=== PATIENT | female | born 2000 | race Hispanic/Latino ===

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

== ENCOUNTER 2020-02-06 11:38 | Emergency (ER) | payer OTHER ==
[~2020-02-06] VITALS: Ht 149.9 cm; Wt 54.0 kg
[2020-02-06] MEDS ORDERED: IBUPROFEN600 MG PO (13:37)
[2020-02-06] MEDS ORDERED: FLEXERIL5 M1 PO (13:37)
[2020-02-06 13:45] VITALS: BP 97/59
== END 2020-02-06 13:55 | disposition home or self-care (01) | DRG 552 ==
LOC: ED 11:38
DX: S16.1XXA Strain of muscle, fascia and tendon at neck level, initial encounter (principal); S29.012A Strain of muscle and tendon of back wall of thorax, initial encounter; F17.200 Nicotine dependence, unspecified, uncomplicated; V40.5XXA Car driver injured in collision with pedestrian or animal in traffic accident, initial encounter

== ENCOUNTER 2020-02-27 14:40 | Emergency (ER) | payer OTHER ==
[~2020-02-27] VITALS: Ht 149.9 cm; Wt 50.0 kg
[~2020-02-27 14:40] MED LIST changes: +FLEXERIL5 M1 PO; +IBUPROFEN600 MG PO
[2020-02-27 15:14] LABS: URINE BLOOD DIPSTICK NEGATIVE (NEGATIVE); URINE CLARITY CLEAR; URINE COLOR YELLOW; URINE GLUCOSE - DIPSTICK NEGATIVE (NEGATIVE); URINE KETONE 15 mg/dL (NEGATIVE); URINE LEUK ESTERASE NEGATIVE (Negative); URINE NITRITE - DIPSTICK NEGATIVE (Negative); URINE PROTEIN - DIPSTICK 100 mg/dL (NEG-TRACE); URINE SPECIFIC GRAVITY >=1.030; URINE UROBILINOGEN - DIPSTICK 0.2 E.U./dL (0.2)
[2020-02-27 15:19] LABS: URINE BILIRUBIN - DIPSTICK NEGATIVE (NEGATIVE)
[2020-02-27 15:22] LABS: URINE MUCUS FEW hpf (NONE-FEW); URINE SQUAMOUS EPITHELIAL CELL FEW EPI/hpf (0-FEW)
[2020-02-27 16:02] VITALS: BP 105/67
--- NOTE | 2020-03-01 09:47 | NUR ---
Notified patient of positive Covid results. Patient states she is "feeling fine" Advised patient to quarantine until contacted by the [facility]. Advised patient to return to the [facility] with any difficulty breathing. Patient verbalized underestanding.
== END 2020-02-27 16:10 | disposition home or self-care (01) ==
LOC: ED 14:40
DX: U07.1 COVID-19 (principal); R43.8 Other disturbances of smell and taste; R19.7 Diarrhea, unspecified

== ENCOUNTER 2020-06-20 04:58 | Emergency (ER) | payer OTHER ==
[~2020-06-20] VITALS: Ht 149.9 cm; Wt 53.2 kg
[2020-06-20 06:38] LABS: URINE BILIRUBIN - DIPSTICK NEGATIVE (NEGATIVE); URINE BLOOD DIPSTICK NEGATIVE (NEGATIVE); URINE COLOR YELLOW; URINE GLUCOSE - DIPSTICK NEGATIVE (NEGATIVE); URINE KETONE NEGATIVE (NEGATIVE); URINE LEUK ESTERASE NEGATIVE (NEGATIVE); URINE NITRITE - DIPSTICK NEGATIVE (Negative); URINE PH 5.5 (4.5-8.0); URINE PROTEIN - DIPSTICK NEGATIVE (NEG-TRACE); URINE SPECIFIC GRAVITY >=1.030; URINE UROBILINOGEN - DIPSTICK 0.2 E.U./dL (0.2)
[2020-06-20 06:38] LABS: HEMATOCRIT 39.9 % (37.0-47.0); HEMOGLOBIN 13.1 g/dl (12.0-16.0); IMMATURE GRANULOCYTES 0.2 % (0.0-5.0); MEAN CELL VOLUME 90.3 fL CALC (80.0-100.0); MEAN CORPUSCULAR HGB 29.6 pG CALC (26.0-32.0); MEAN CORPUSCULAR HGB CONC 32.8 g/dL CAL (32.0-36.0); NEUT# 4.79 thou/uL (2.00-7.15); RED BLOOD COUNT 4.42 mill/uL (4.20-5.60); RED CELL DISTRI WIDTH 11.8 % (11.5-15.5)
[2020-06-20 07:00] LABS: ALBUMIN 4.9 g/dL (3.2-5.0); ALKALINE PHOSPHATASE 88 u/l (38-126); ANION GAP 16 (6-22 (CALC)); BILIRUBIN, TOTAL 0.6 mg/dL (0.0-1.4); BUN 11 mg/dL (8-21); BUN/CREATININE RATIO 18 (12-20 (CALC)); CARBON DIOXIDE 19 mmol/l (22-30); CHLORIDE 107 mmol/l (95-108); CREATININE 0.7 mg/dL (0.5-1.0); GFR > 60 ML/MIN (>=60 (CALC)); GFR FOR AFR.AMER. > 60 ML/MIN (>=60 (CALC)); SGOT/AST 25 u/l (14-36); SODIUM 138 mmol/l (137-146); TOTAL PROTEIN 8.6 g/dL (6.3-8.2)
[2020-06-20] MEDS ORDERED: ZOFRAN4 M1 PO (07:54)
[2020-06-20 08:36] VITALS: BP 110/68
== END 2020-06-20 08:36 | disposition home or self-care (01) | DRG 179 ==
LOC: ED 04:58
PROVIDERS: Family Medicine
DX: U07.1 COVID-19 (principal); R19.7 Diarrhea, unspecified; R52 Pain, unspecified; F32.9 Major depressive disorder, single episode, unspecified; Z86.16 Personal history of COVID-19

== ENCOUNTER 2021-03-11 21:48 | Emergency (ER) | payer OTHER ==
[~2021-03-11] VITALS: Ht 149.9 cm; Wt 59.0 kg
[~2021-03-11 21:48] MED LIST changes: +ZOFRAN4 M1 PO
[2021-03-11 22:20] LABS: IMMATURE GRANULOCYTES 0.2 % (0.0-5.0); MEAN CELL VOLUME 90.5 fL CALC (80.0-100.0); MEAN CORPUSCULAR HGB 30.2 pG CALC (26.0-32.0); MEAN CORPUSCULAR HGB CONC 33.3 g/dL CAL (32.0-36.0); NEUT# 5.18 thou/uL (2.00-7.15); RED BLOOD COUNT 4.31 mill/uL (4.20-5.60); RED CELL DISTRI WIDTH 11.7 % (11.5-15.5)
[2021-03-11 23:15] VITALS: BP 120/70
== END 2021-03-11 23:20 | disposition home or self-care (01) | DRG 153 ==
LOC: ED 21:48
PROVIDERS: Family Medicine
DX: J06.9 Acute upper respiratory infection, unspecified (principal); F32.A Depression, unspecified; Z20.822 Contact with and (suspected) exposure to COVID-19; Z86.16 Personal history of COVID-19

== ENCOUNTER 2021-05-01 09:52 | Emergency (ER) | payer OTHER ==
[~2021-05-01] VITALS: Ht 149.9 cm; Wt 60.0 kg
[2021-05-01] MEDS ORDERED: VOLTAREN1%GEL TOP (11:35)
[2021-05-01 12:20] VITALS: BP 116/74
== END 2021-05-01 12:20 | disposition home or self-care (01) ==
LOC: ED 09:52
DX: M54.6 Pain in thoracic spine (principal); M54.50 Low back pain, unspecified; F32.A Depression, unspecified; Z86.16 Personal history of COVID-19

== ENCOUNTER 2021-06-16 21:24 | Emergency (ER) | payer OTHER ==
[~2021-06-16] VITALS: Ht 149.9 cm; Wt 72.7 kg
[~2021-06-16 21:24] MED LIST changes: +VOLTAREN1%GEL TOP
[2021-06-16 22:10] LABS: HEMATOCRIT 39.8 % (37.0-47.0); HEMOGLOBIN 13.1 g/dl (12.0-16.0); IMMATURE GRANULOCYTES 0.1 % (0.0-5.0); MEAN CELL VOLUME 90.9 fL CALC (80.0-100.0); MEAN CORPUSCULAR HGB 29.9 pG CALC (26.0-32.0); MEAN CORPUSCULAR HGB CONC 32.9 g/dL CAL (32.0-36.0); NEUT# 6.51 thou/uL (2.00-7.15); RED BLOOD COUNT 4.38 mill/uL (4.20-5.60); RED CELL DISTRI WIDTH 11.7 % (11.5-15.5)
[2021-06-16 22:45] VITALS: BP 118/73
== END 2021-06-16 22:50 | disposition home or self-care (01) ==
LOC: ED 21:24
PROVIDERS: Family Medicine
DX: B34.9 Viral infection, unspecified (principal); F32.A Depression, unspecified; Z86.16 Personal history of COVID-19; Z20.822 Contact with and (suspected) exposure to COVID-19

== ENCOUNTER 2021-08-06 00:28 | Emergency (ER) | payer OTHER ==
[~2021-08-06] VITALS: Ht 147.3 cm; Wt 69.0 kg
[2021-08-06 01:05] LABS: URINE BILIRUBIN - DIPSTICK NEGATIVE (NEGATIVE); URINE BLOOD DIPSTICK NEGATIVE (NEGATIVE); URINE COLOR YELLOW; URINE GLUCOSE - DIPSTICK NEGATIVE (NEGATIVE); URINE KETONE NEGATIVE (NEGATIVE); URINE LEUK ESTERASE NEGATIVE (NEGATIVE); URINE PROTEIN - DIPSTICK NEGATIVE (NEG-TRACE); URINE UROBILINOGEN - DIPSTICK 0.2 E.U./dL (0.2)
[2021-08-06 01:07] LABS: URINE NITRITE - DIPSTICK NEGATIVE (Negative)
[2021-08-06 01:18] LABS: ALBUMIN 4.3 g/dL (3.2-5.0); ALKALINE PHOSPHATASE 115 u/l (38-126); AMYLASE 57 u/l (30-110); BILIRUBIN, TOTAL 0.4 mg/dL (0.0-1.4); BUN 9 mg/dL (7-17); BUN/CREATININE RATIO 17 (12-20 (CALC)); CHLORIDE 104 mmol/l (95-108); CREATININE 0.6 mg/dL (0.5-1.0); GFR > 60 ML/MIN (>=60 (CALC)); GFR FOR AFR.AMER. > 60 ML/MIN (>=60 (CALC)); HEMATOCRIT 37.6 % (37.0-47.0); HEMOGLOBIN 12.4 g/dl (12.0-16.0); LIPASE 84 u/l (23-300); MEAN CELL VOLUME 90.4 fL CALC (80.0-100.0); MEAN CORPUSCULAR HGB 29.8 pG CALC (26.0-32.0); NEUT# 3.12 thou/uL (2.00-7.15); POTASSIUM 3.8 mmol/l (3.5-5.1); RED BLOOD COUNT 4.16 mill/uL (4.20-5.60); RED CELL DISTRI WIDTH 11.9 % (11.5-15.5); SGOT/AST 33 u/l (14-36); SODIUM 138 mmol/l (137-146); TOTAL PROTEIN 7.9 g/dL (6.3-8.2)
[2021-08-06 01:20] LABS: ANION GAP 15 (6-22 (CALC)); CARBON DIOXIDE 23 mmol/l (22-30)
[2021-08-06] MEDS ORDERED: METRONIDAZOLE500 MG PO (05:49)
[2021-08-06] MEDS ORDERED: CIPROFLOXACN500 MG PO (05:49)
[2021-08-06] MEDS ORDERED: ULTRAM50 M1 PO (05:49)
[2021-08-06 06:36] VITALS: BP 99/60
== END 2021-08-06 06:36 | disposition home or self-care (01) ==
LOC: ED 00:28
PROVIDERS: Emergency Medicine
DX: K52.9 Noninfective gastroenteritis and colitis, unspecified (principal); Z86.16 Personal history of COVID-19; Z20.822 Contact with and (suspected) exposure to COVID-19
CPT/HCPCS: Q9967

== ENCOUNTER 2022-06-03 21:12 | Emergency (ER) | payer OTHER ==
[~2022-06-03] VITALS: Ht 149.9 cm; Wt 81.0 kg
[~2022-06-03 21:12] MED LIST changes: +CIPROFLOXACN500 MG PO; +METRONIDAZOLE500 MG PO; +ULTRAM50 M1 PO
[2022-06-03 21:19] VITALS: BP 118/58
[2022-06-03] MEDS ORDERED: PRENATA3 PO (21:30)
[2022-06-03 21:57] LABS: BASO% 0.5 % (0-3); EOS% 3.2 % (0-8); HEMATOCRIT 31.8 % (37.0-47.0); IMMATURE GRANULOCYTES 1.3 % (0.0-5.0); LYMPH% 19.4 % (15-41); MEAN CELL VOLUME 84.4 fL CALC (80.0-100.0); MEAN CORPUSCULAR HGB 27.1 pG CALC (26.0-32.0); MEAN CORPUSCULAR HGB CONC 32.1 g/dL CAL (32.0-36.0); NEUT# 7.3 thou/uL (2.00-7.15); NEUT% 66.6 % (42-76); RED BLOOD COUNT 3.77 mill/uL (4.20-5.60); RED CELL DISTRI WIDTH 13.4 % (11.5-15.5)
[2022-06-03 22:03] LABS: HEMOGLOBIN 10.2 g/dl (12.0-16.0)
[2022-06-03 22:13] LABS: ALBUMIN 3.5 g/dL (3.2-5.0); BUN 7 mg/dL (7-17); BUN/CREATININE RATIO 16 (12-20 (CALC)); CHLORIDE 108 mmol/l (95-108); CREATININE 0.4 mg/dL (0.5-1.0); GFR FOR AFR.AMER. > 60 ML/MIN (>=60 (CALC)); GFR OTHER RACES > 60 ML/MIN (>=60 (CALC)); POTASSIUM 3.7 mmol/l (3.5-5.1); SGOT/AST 25 u/l (14-36); SODIUM 134 mmol/l (137-146)
[2022-06-03 22:14] LABS: ALKALINE PHOSPHATASE 247 u/l (38-126); ANION GAP 12 (6-22 (CALC)); BILIRUBIN, TOTAL 0.1 mg/dL (0.02-1.3); CARBON DIOXIDE 18 mmol/l (22-30)
[2022-06-03] MEDS ORDERED: PREDNISONE50 MG PO (22:23)
[2022-06-03 22:24] VITALS: BP 118/58
== END 2022-06-03 22:34 | disposition home or self-care (01) ==
LOC: ED 21:12
PROVIDERS: Family Medicine
DX: O99.713 Diseases of the skin and subcutaneous tissue complicating pregnancy, third trimester (principal); L50.9 Urticaria, unspecified; O99.333 Smoking (tobacco) complicating pregnancy, third trimester; F17.200 Nicotine dependence, unspecified, uncomplicated; Z3A.36 36 weeks gestation of pregnancy; Z86.16 Personal history of COVID-19

== ENCOUNTER 2023-01-06 09:59 | Emergency (ER) | payer OTHER ==
[~2023-01-06] VITALS: Ht 149.9 cm; Wt 60.0 kg
[~2023-01-06 09:59] MED LIST changes: +PREDNISONE50 MG PO; +PRENATA3 PO
[2023-01-06 10:24] LABS: BASO% 0.4 % (0-3); EOS% 1.9 % (0-8); IMMATURE GRANULOCYTES 0.1 % (0.0-5.0); LYMPH% 29.6 % (15-41); MEAN CELL VOLUME 86.7 fL CALC (80.0-100.0); MEAN CORPUSCULAR HGB 28.4 pG CALC (26.0-32.0); MEAN CORPUSCULAR HGB CONC 32.8 g/dL CAL (32.0-36.0); MONO% 8.6 % (2-13); NEUT# 4.1 thou/uL (2.00-7.15); NEUT% 59.4 % (42-76); RED BLOOD COUNT 4.75 mill/uL (4.20-5.60); RED CELL DISTRI WIDTH 12.6 % (11.5-15.5)
[2023-01-06 10:37] LABS: HEMATOCRIT 41.2 % (37.0-47.0); HEMOGLOBIN 13.5 g/dl (12.0-16.0)
[2023-01-06 10:40] LABS: ALBUMIN 4.7 g/dL (3.2-5.0); ALKALINE PHOSPHATASE 126 u/l (38-126); ANION GAP 15 (6-22 (CALC)); BILIRUBIN, TOTAL 0.6 mg/dL (0.02-1.3); BUN 10 mg/dL (7-17); BUN/CREATININE RATIO 17 (12-20 (CALC)); CARBON DIOXIDE 21 mmol/l (22-30); CHLORIDE 107 mmol/l (95-108); CREATININE 0.6 mg/dL (0.5-1.0); GFR FOR AFR.AMER. > 60 ML/MIN (>=60 (CALC)); GFR OTHER RACES > 60 ML/MIN (>=60 (CALC)); POTASSIUM 3.9 mmol/l (3.5-5.1); SGOT/AST 45 u/l (14-36); SODIUM 139 mmol/l (137-146); TOTAL PROTEIN 9.1 g/dL (6.3-8.2)
[2023-01-06 10:56] LABS: BETA-HCG, QUANT(RESULT NUMBER) <2 mIU/mL
== END 2023-01-06 10:45 | disposition home or self-care (01) ==
LOC: ED 09:59
PROVIDERS: Family Medicine
DX: N93.9 Abnormal uterine and vaginal bleeding, unspecified (principal); R10.30 Lower abdominal pain, unspecified; F32.A Depression, unspecified; Z86.16 Personal history of COVID-19